=== PATIENT | male | born 1960 | race Caucasian/White ===

== ENCOUNTER 2023-01-22 07:38 | Day surgery (SDC) | payer BC ==
[~2023-01-22] VITALS: Ht 188 cm; Wt 100.3 kg
[2023-01-22] MEDS ORDERED: LOSA25 (08:02)
[2023-01-22] MEDS ORDERED: OMEP20ER (08:02)
[2023-01-22 09:55] VITALS: BP 103/70
== END 2023-01-22 10:01 | disposition home or self-care (01) ==
LOC: ORSCSDS 07:38
PROVIDERS: Internal Medicine Gastroenterology
PROC: 0DBM8ZX Excision of Descending Colon, Via Natural or Artificial Opening Endoscopic, Diagnostic (ICD-10-PCS; principal; 2023-01-22 09:00)
DX: Z12.11 Encounter for screening for malignant neoplasm of colon (principal); D12.4 Benign neoplasm of descending colon; I10 Essential (primary) hypertension; Z87.891 Personal history of nicotine dependence; Z79.899 Other long term (current) drug therapy
CPT/HCPCS: 88305; J2704; J7120